=== PATIENT | female | born 1935 | race Caucasian/White ===

== ENCOUNTER → 2024-06-10 11:45 | Outpatient (REF) | payer MEDICARE, SELFPAY | LOC: WDC 11:45 | PROVIDERS: ATTENDING PHYSICIAN Surgery; FAMILY PHYSICIAN Internal Medicine | DX: N63.14 Unspecified lump in the right breast, lower inner quadrant (principal) | CPT/HCPCS: 88305; 19083; 88341; 88360; A4648 ==

== ENCOUNTER 2024-07-24 06:25 | Day surgery (SDC) | payer MEDICARE, SELFPAY ==
[2024-07-08 11:27] LABS: Hematocrit 41.9 % (37.0-47.0); Hemoglobin 13.7 g/dL (12.0-16.0); Mean Corp Hgb Conc. 32.7 g/dL (33.0-37.0); Mean Corpuscular Hgb 30.6 pg (27.0-31.0); Mean Corpuscular Volume 93.5 fL (81.0-99.0); Mean Platelet Volume 9.8 fL (7.4-10.4); Platelet Count 212 10^3/uL (130-400); Red Blood Cell Count 4.48 10^6/uL (4.20-5.40); Red Cell Dist. Width 13.1 % (11.5-14.5)
[2024-07-08 11:54] LABS: Prealbumin (Transthyretin) 31.9 mg/dl (17.6-36.0)
[2024-07-08 12:03] LABS: ALT (SGPT) 25 U/L (0-35); AST (SGOT) 24 U/L (14-36); Albumin 4.6 g/dl (3.5-5.0); Alkaline Phosphatase 36 U/L (38-126); Blood Urea Nitrogen 34 mg/dl (7-17); Calcium 9.5 mg/dl (8.4-10.2); Carbon Dioxide 28 mmol/L (22-30); Chloride 103 mmol/L (98-107); Glucose 181 mg/dl (70-99); Potassium 4.9 mmol/L (3.5-5.1); Sodium 140 mmol/L (135-145); Total Bilirubin 0.5 mg/dl (0.2-1.3); Total Protein 7.3 g/dl (6.3-8.2); eGFR 23.88
[2024-07-08 12:05] LABS: Vitamin D, 25-OH*** 52.3 ng/mL (30-80)
[2024-07-08 13:11] VITALS: BMI 26.6
--- NOTE | 2024-07-08 13:37 | PTCARENOTE ---
Lien Leach @ Dr. Servin office notified of patients 07/08 Creat- 2.0; GFR-23.88; Glucose 181 (nonfasting)
[2024-07-24 08:05] LABS: Glucose - Point of Care 163 mg/dl (70-99)
[2024-07-24] MEDS: TYLENOL 1000 MG PO (08:09)
[2024-07-24] MEDS: LOVENOX 40 MG SC (08:10)
[2024-07-24] MEDS: VANCOCIN 200 IV (08:10)
[2024-07-24] MEDS: NORMOSOL-R/PLASMALYTE-A 1000 IV (08:11)
[2024-07-24 08:20] VITALS: BP 148/76; BMI 26.6
[2024-07-24 09:56] VITALS: BP 102/60
[2024-07-24 10:00] VITALS: BP 109/37
--- NOTE | 2024-07-24 10:02 | W.IMMPOSTOP ---
Surgical Immed Post Op Note
-
Primary Surgeon: Tasia
Assisting Surgeon: None
Pre-op Diagnosis: Right breast carcinoma
Post-op Diagnosis: Right breast carcinoma
Procedure Performed: Right lumpectomy
Anesthesia Type: TIVA
Specimen / Cultures: Right lumpectomy and margins
Estimated Blood Loss: 4cc
Complications: none
Operative Findings: none
--- NOTE | 2024-07-24 10:03 | OR.RPT ---
Operative Report
Operative Report
Pre-op Dx: right breast carcinoma
Post-op DX: Right breast carcinoma
Procedure:: Right lumpectomy
Surgeon: Tasia
Anes: TIVA
EBL:4cc
Specimens: right lumpectomy and margins
The patient is an 88-year-old female has a palpable right breast carcinoma with a qualified for lumpectomy only without axillary sampling. She presented to same-day surgery unit and verified site and procedure. DVT and antibiotic prophylaxis were
provided. She was taken to the operating room and in the supine position intravenous sedation was delivered. Right breast was prepped and draped in the usual sterile fashion. An appropriate timeout was performed. All tissues were anesthetized
with 1% lidocaine plain. A wedge excision of skin overlying the mass which was distorting the skin was made sharply with the blade skin flaps were elevated and a wide lumpectomy was performed using cautery. Time out of body was noted and the
specimen was oriented for the pathologist and sent immediately for processing. Additional margins were harvested from the posterior, medial, superior, lateral, inferior, and anterior dimensions oriented as well. Hemostasis was verified. Marcaine
0.5% plain was applied and the wound was closed in multiple layers using simple interrupted 3-0 plain on deep intermediate and subcutaneous tissue. A portion of Surgicel has been placed in the deep margin of the incision. Skin was closed using
simple interrupted 3-0 Vicryl and a running subcuticular 4 Monocryl. A few simple interrupted Monocryl's were placed for extra support as well. Glue and compressive dressings were applied. All sponge needle and instrument counts were correct and
the patient was transported to the recovery room in stable condition.
()
[2024-07-24 10:15] VITALS: BP 115/38
[2024-07-24 10:30] VITALS: BP 120/56
== END 2024-07-24 11:00 | disposition home or self-care (01) ==
LOC: SDS 06:25
PROVIDERS: ATTENDING PHYSICIAN Surgery; FAMILY PHYSICIAN Internal Medicine
DX: C50.911 Malignant neoplasm of unspecified site of right female breast (principal)
CPT/HCPCS: 19301; 88305; 88307; 36415; 80053; 82306; 82962; 84134; 85027; 93005; A4648; L8000

== ENCOUNTER → 2024-12-09 14:13 | Outpatient (REF) | payer MEDICARE, SELFPAY | LOC: HWWDC 14:13 | PROVIDERS: ATTENDING PHYSICIAN Surgery; FAMILY PHYSICIAN Internal Medicine | DX: R92.8 Other abnormal and inconclusive findings on diagnostic imaging of breast (principal) | CPT/HCPCS: 77061; 77065 ==

== ENCOUNTER → 2024-12-23 09:19 | Outpatient (REF) | payer MEDICARE, SELFPAY | LOC: WDC 09:19 | PROVIDERS: ATTENDING PHYSICIAN Surgery; FAMILY PHYSICIAN Internal Medicine | DX: R92.8 Other abnormal and inconclusive findings on diagnostic imaging of breast (principal) | CPT/HCPCS: 76642 ==

== ENCOUNTER → 2025-01-06 10:20 | Outpatient (REF) | payer MEDICARE, SELFPAY | LOC: WDC 10:20 | PROVIDERS: ATTENDING PHYSICIAN Surgery; FAMILY PHYSICIAN Internal Medicine | DX: N63.22 Unspecified lump in the left breast, upper inner quadrant (principal) | CPT/HCPCS: 88305; 19083; 88341; 88342; 88360; A4648 ==

== ENCOUNTER → 2025-02-12 08:15 | Outpatient (REF) | payer MEDICARE, SELFPAY | LOC: WDC 08:15 | PROVIDERS: ATTENDING PHYSICIAN Surgery | DX: C50.412 Malignant neoplasm of upper-outer quadrant of left female breast (principal) | CPT/HCPCS: 19285; A4648 ==

== ENCOUNTER 2025-02-16 06:02 | Day surgery (SDC) | payer MEDICARE, SELFPAY ==
[2025-02-03 12:36] VITALS: BMI 25.4
[2025-02-03 12:54] LABS: Hematocrit 37.7 % (37.0-47.0); Hemoglobin 12.8 g/dL (12.0-16.0); Mean Corp Hgb Conc. 34.0 g/dL (33.0-37.0); Mean Corpuscular Volume 93.8 fL (81.0-99.0); Platelet Count 194 10^3/uL (130-400); Red Cell Dist. Width 12.7 % (11.5-14.5)
[2025-02-03 13:40] LABS: Prealbumin (Transthyretin) 26.0 mg/dl (17.6-36.0)
[2025-02-03 13:55] LABS: ALT (SGPT) 17 U/L (0-35); AST (SGOT) 18 U/L (14-36); Albumin 4.6 g/dl (3.5-5.0); Alkaline Phosphatase 36 U/L (38-126); Blood Urea Nitrogen 45 mg/dl (7-17); Calcium 9.2 mg/dl (8.4-10.2); Carbon Dioxide 24 mmol/L (22-30); Chloride 102 mmol/L (98-107); Estimated Creatinine Clearance 15 ml/min; Glucose 147 mg/dl (70-99); Potassium 5.0 mmol/L (3.5-5.1); Sodium 135 mmol/L (135-145); Total Protein 7.3 g/dl (6.3-8.2); eGFR 19.07
[2025-02-03 13:57] LABS: Vitamin D, 25-OH*** 60.8 ng/mL (30-80)
--- NOTE | 2025-02-09 12:29 | PTCARENOTE ---
Patients 02/03 frederick 2.4- mike @ Dr. Servin office TT
[2025-02-16] VITALS (8 sets, daily range): BP systolic 85–127; BP diastolic 46–73; BMI 25.4
[2025-02-16 06:46] LABS: Glucose - Point of Care 164 mg/dl (70-99)
[2025-02-16] MEDS: LOVENOX 40 MG SC (06:47)
[2025-02-16] MEDS: VANCOCIN 200 IV (06:48)
[2025-02-16] MEDS: TYLENOL 1000 MG PO (06:48)
[2025-02-16] MEDS: NORMOSOL-R/PLASMALYTE-A 1000 IV (06:48)
--- NOTE | 2025-02-16 07:13 | W.SUR.PREOP ---
Pre-Operative Surgical Note
-
I have examined this patient prior to the performance of the scheduled procedure.
The patient's condition is unchanged from the time of the current History and
Physical and the patient is able to undergo the scheduled procedure.
--- NOTE | 2025-02-16 08:50 | W.IMMPOSTOP ---
Surgical Immed Post Op Note
-
Primary Surgeon: Tasia
Assisting Surgeon: None
Pre-op Diagnosis: Left breast ca
Post-op Diagnosis: Same
Procedure Performed: Left localized lumpectomy
Anesthesia Type: TIVA
Specimen / Cultures: Left lumpectomy, margins
Estimated Blood Loss: 10cc
Complications: None
Operative Findings: Clip and mass in specimen; reflector dislodged but seen
--- NOTE | 2025-02-16 08:51 | OR.RPT ---
Addendum entered and electronically signed by Sheila Dozier MD 02/22/25 16:50:
Procedure: left localized lumpectomy
Original Note:
Operative Report
Operative Report
Date of procedure: 02/16/2025
Surgeon: Tasia
Preoperative diagnosis: Left breast CA
Postoperative diagnosis: Left breast CA
The patient is an 89-year-old female who had image detected early stage favorable left breast carcinoma. Due to good performance status she presents for surgical resection. She met criteria not to undergo any axillary sampling. On the day prior
to the procedure she presented to the [facility] where Funmilayo reflector was placed at the tumor site.
On the day of surgery the patient presented to same-day surgical services. She was prepped and DVT and antibiotic prophylaxis were provided. She was taken to the operating room and in the supine position intravenous sedation was delivered. Left
breast was prepped and draped in usual sterile fashion and all team members performed an appropriate timeout procedure.
Tissues were anesthetized with 1% lidocaine plain and including the tumor site. Curvilinear incision was made overlying the area of highest Funmilayo blue line trimmer signal. Skin flaps were elevated with the cautery and dissection was carried down to the mass
which was widely excised with the cautery. Time out of body was noted. The reflector was seen and passed back into the the tumor site. Specimen was oriented for the pathologist as specimen radiography confirmed the presence of mass and clip
within it. The reflector became dislodged and transferring it into the specimen container.
Hemostasis was maintained by using 3-0 silk tie or the cautery. Additional margins were harvested from the posterior, medial, superior, lateral, inferior, and anterior dimensions and oriented for the pathologist. These were sent under separate
cover.
Hemoclips were placed in the resection cavity to nadeem the site of the tumor. The wound was closed after infiltration of the all tissues with 0.5% Marcaine plain. Deep and intermediate tissues were closed with 3-0 plain gut. Skin was closed using
simple interrupted 4-0 Vicryl on subcutaneous tissue and a running subcuticular 4 Monocryl on skin. Surgical glue and a sterile compressive dressing were applied. All sponge needle and instrument counts were correct and the patient was transferred
to the recovery room in stable condition.
([id number])
[2025-02-16 09:28] LABS: Glucose - Point of Care 162 mg/dl (70-99)
== END 2025-02-16 10:55 | disposition home or self-care (01) ==
LOC: SDS 06:02
PROVIDERS: ATTENDING PHYSICIAN Surgery; FAMILY PHYSICIAN Internal Medicine
DX: C50.412 Malignant neoplasm of upper-outer quadrant of left female breast (principal); Z17.0 Estrogen receptor positive status [ER+]
CPT/HCPCS: 19301; 36415; 76098; 80053; 82306; 82962; 84134; 85027; 88305; 88307; 93005